=== PATIENT | female | born 1950 | race Caucasian/White ===

== ENCOUNTER 2020-07-27 11:05 | Emergency (ER) | payer MEDICARE, OTHER ==
[~2020-07-27 11:05] MED LIST: ARICEPT 5MG TABL5 MG PO; ASPIRIN CHEWABL81 MG PO; FLUTICASONE; HCTZ12.5 MG PO; HUMALOG JU100 UNIT/1 SC; HUMALOG100 UNIT/2 SC; IMDUR 30MG TABL30 MG PO; LEVEMIR VI100 UNITS/ SC; LEXAPRO 10MG TA10 MG PO; LIPITOR40 MG PO; MAG-OXIDE 400M400 MG PO; MIRALAX17 GM PO; NAPROXEN500 MG PO; NORVASC5 MG PO; OS-CAL500 MG PO; PRINIVIL20 MG PO; TRESIBA FL100 UNIT/1 SC; TRESIBA100 UNIT/1 SC; VITAMIN D-32000 UNI1 PO
[2020-07-27 11:58] LABS: BASOPHIL 1.1 % (0-2); EOSINOPHIL 0.5 % (0-7); HCT 35.2 % (37.0-47.0); HGB 10.9 g/dl (12.5-16.0); LYMPHOCYTE 13.4 % (15-48); MCH 28.8 pg (25.0-31.0); MCV 93.1 fL (78.0-100.0); MONOCYTE 6.9 % (0-12); MPV 10.1 fL (6.0-9.5); NEUTROPHIL 77.6 % (41-80); NRBC 0; PLT 188 K/uL (150-400); RBC 3.78 M/uL (4.20-5.40); RDW 14.2 % (11.5-14.0); WBC 5.5 K/uL (4.0-10.5)
[2020-07-27 12:15] LABS: ALBUMIN 3.2 g/dL (3.4-5.0); BILIRUBIN - TOTAL 0.3 mg/dL (0.2-1.0); BUN/CREAT RATIO (CALC) 26.4 RATIO; CREATININE 1.21 mg/dL (0.51-0.95); GLOBULIN (CALCULATION) 3.4 g/dL; POTASSIUM 5.5 mmol/L (3.5-5.1); TOTAL PROTEIN 6.6 g/dL (6.4-8.2)
[2020-07-27 13:01] LABS: BILIRUBIN NEGATIVE (NEGATIVE); BLOOD NEGATIVE Ery/uL (NEGATIVE); CLARITY CLEAR (CLEAR); COLOR YELLOW (YELLOW); GLUCOSE (U) 3+ mg/dL (NORMAL); LEUKOCYTES NEGATIVE Leu/uL (NEGATIVE); NITRITE NEGATIVE (NEGATIVE); PROTEIN NEGATIVE (NEGATIVE); SPECIFIC GRAVITY 1.015 (1.001-1.030); UROBILINOGEN 0.2 mg/dL (0.2-1.0); pH 6.5 (5.0-9.0)
== END 2020-07-27 15:20 | disposition home or self-care (01) ==
LOC: FER 11:05
PROVIDERS: Emergency Medicine
DX: F03.90 Unspecified dementia, unspecified severity, without behavioral disturbance, psychotic disturbance, mood disturbance, and anxiety (principal); I10 Essential (primary) hypertension; E11.9 Type 2 diabetes mellitus without complications
CPT/HCPCS: 36415; 70450; 80053; 81003; 85025; 99285

== ENCOUNTER 2020-09-23 19:24 | Day surgery (SDCO) | payer MEDICARE, OTHER ==
[~2020-09-23] VITALS: Ht 162.6 cm; Wt 74.6 kg
[2020-09-23 19:49] LABS: BASOPHIL 0.6 % (0-2); EOSINOPHIL 1.8 % (0-7); HCT 37.2 % (37.0-47.0); HGB 11.9 g/dl (12.5-16.0); LYMPHOCYTE 26.7 % (15-48); MCV 90.5 fL (78.0-100.0); MONOCYTE 9.2 % (0-12); MPV 9.9 fL (6.0-9.5); NEUTROPHIL 60.5 % (41-80); NRBC 0; PLT 264 K/uL (150-400); RBC 4.11 M/uL (4.20-5.40); RDW 13.3 % (11.5-14.0); WBC 4.9 K/uL (4.0-10.5)
[2020-09-23 20:05] LABS: BILIRUBIN NEGATIVE (NEGATIVE); BLOOD NEGATIVE Ery/uL (NEGATIVE); CLARITY CLEAR (CLEAR); COLOR YELLOW (YELLOW); GLUCOSE (U) TRACE mg/dL (NORMAL); LEUKOCYTES NEGATIVE Leu/uL (NEGATIVE); NITRITE NEGATIVE (NEGATIVE); PROTEIN NEGATIVE (NEGATIVE); UROBILINOGEN 0.2 mg/dL (0.2-1.0)
[2020-09-23 20:06] LABS: AMPHETAMINES NEGATIVE (NEGATIVE); BARBITURATES NEGATIVE (NEGATIVE); ECSTASY (MDMA) NEGATIVE (NEGATIVE); MARIJUANA (THC) NEGATIVE (NEGATIVE); METHADONE NEGATIVE (NEGATIVE); OPIATES NEGATIVE (NEGATIVE); OXYCODONE NEGATIVE (NEGATIVE)
[2020-09-23 20:26] LABS: INR 1.07 (0.9-1.2); PROTHROMBIN TIME 13.2 SECONDS (11.4-13.6); PTT 30.8 SECONDS (22.2-34.7)
[2020-09-23 20:33] LABS: ALBUMIN 3.5 g/dL (3.4-5.0); BILIRUBIN - TOTAL 0.2 mg/dL (0.2-1.0); CREATININE 1.18 mg/dL (0.51-0.95); TOTAL PROTEIN 7.5 g/dL (6.4-8.2)
[2020-09-23 20:35] LABS: POTASSIUM 6.1 mmol/L (3.5-5.1)
[2020-09-24 02:32] LABS: BUN/CREAT RATIO (CALC) 26.1 RATIO; CREATININE 1.11 mg/dL (0.51-0.95)
[2020-09-24 02:33] LABS: POTASSIUM 5.4 mmol/L (3.5-5.1)
[2020-09-24 04:49] LABS: CORONAVIRUS 2019 SARS-COV-2 NEGATIVE (NEGATIVE); INFLUENZA A NAA NEGATIVE (NEGATIVE)
[2020-09-24 08:28] LABS: BASOPHIL 0.9 % (0-2); EOSINOPHIL 1.5 % (0-7); HCT 36.4 % (37.0-47.0); HGB 11.3 g/dl (12.5-16.0); LYMPHOCYTE 21.1 % (15-48); MCH 28.7 pg (25.0-31.0); MCV 92.4 fL (78.0-100.0); MPV 9.3 fL (6.0-9.5); NEUTROPHIL 68.6 % (41-80); NRBC 0; PLT 228 K/uL (150-400); RBC 3.94 M/uL (4.20-5.40); RDW 13.3 % (11.5-14.0); WBC 4.6 K/uL (4.0-10.5)
[2020-09-24 08:52] LABS: ALBUMIN 3.2 g/dL (3.4-5.0); BILIRUBIN - TOTAL 0.2 mg/dL (0.2-1.0); BUN/CREAT RATIO (CALC) 24.5 RATIO; CREATININE 1.1 mg/dL (0.51-0.95); GLOBULIN (CALCULATION) 3.7 g/dL; TOTAL PROTEIN 6.9 g/dL (6.4-8.2)
--- NOTE | 2020-09-24 11:18 | NUR ---
PER PT. SISTER, FABIANO, PT. LIVED WITH HER SISTER FABIANO FOR THE PAST FOUR YEARS. SHE MOVED INTO THE [facility] AT [facility] IN MAY 2020. HER SISTER REPORTS THAT SHE GETS GOOD CARE. PT. DOES NOT HAVE ANY CHILDREN NOR HAS SHE BEEN . HER SISTER, FABIANO, IS THE PRIMARY FAMILY WHO CARES FOR PATIENT.
[2020-09-24] MEDS ORDERED: NORVASC5 MG PO (15:04)
[2020-09-24] MEDS ORDERED: CYMBALTA 30MG C30 MG PO (15:05)
[2020-09-24] MEDS ORDERED: FERROUS SULFAT325 M1 PO (15:09)
[2020-09-24] MEDS ORDERED: MAG-OXIDE 400M400 MG PO (15:10)
[2020-09-24] MEDS ORDERED: NAMENDA 10MG TA10 MG PO (15:10)
[2020-09-24] MEDS ORDERED: MIRALAX17 G1 PO (15:11)
[2020-09-24] MEDS ORDERED: ALDACTONE25 MG PO (15:12)
[2020-09-24] MEDS ORDERED: TRAZODONE 50MG50 MG PO (15:14)
--- NOTE | 2020-09-24 15:38 | NUR ---
09/24/20. [facility] Jimenez reports plans to accept patient back to [facility] / Memory Unit. A new COVID test will be required if patient discharges 09/27 or beyond. [facility] has in-house Therapy and nursing. Ms. Oscar was receiving therapy 3 times per week. - A report was given to Dr. Pozo. Discharge is anticipated for 09/25/20. - Report given to Zeb García,
[2020-09-24 19:32] LABS: BASOPHIL 0.6 % (0-2); EOSINOPHIL 1.2 % (0-7); HCT 36.1 % (37.0-47.0); HGB 11.3 g/dl (12.5-16.0); LYMPHOCYTE 21.9 % (15-48); MCH 28.8 pg (25.0-31.0); MCHC 31.3 g/dL (32.0-36.0); MCV 92.1 fL (78.0-100.0); MONOCYTE 8.1 % (0-12); MPV 9.1 fL (6.0-9.5); NEUTROPHIL 67.4 % (41-80); NRBC 0; PLT 215 K/uL (150-400); RBC 3.92 M/uL (4.20-5.40); RDW 13.3 % (11.5-14.0); WBC 5.1 K/uL (4.0-10.5)
[2020-09-24 19:46] LABS: BUN/CREAT RATIO (CALC) 23.7 RATIO; CREATININE 1.39 mg/dL (0.51-0.95); MAGNESIUM 2.1 mg/dL (1.8-2.4)
[2020-09-25 06:17] LABS: BASOPHIL 0.6 % (0-2); EOSINOPHIL 2.3 % (0-7); HGB 11.5 g/dl (12.5-16.0); LYMPHOCYTE 26.2 % (15-48); MCHC 31.9 g/dL (32.0-36.0); MCV 90.9 fL (78.0-100.0); MONOCYTE 9.3 % (0-12); MPV 9.5 fL (6.0-9.5); NEUTROPHIL 60.8 % (41-80); NRBC 0; PLT 225 K/uL (150-400); RBC 3.96 M/uL (4.20-5.40); RDW 13.4 % (11.5-14.0); WBC 4.9 K/uL (4.0-10.5)
[2020-09-25 06:55] LABS: ALBUMIN 3.3 g/dL (3.4-5.0); BILIRUBIN - TOTAL 0.3 mg/dL (0.2-1.0); BUN/CREAT RATIO (CALC) 26.1 RATIO; CREATININE 1.38 mg/dL (0.51-0.95); GLOBULIN (CALCULATION) 3.7 g/dL; POTASSIUM 6.5 mmol/L (3.5-5.1)
[2020-09-25 14:01] LABS: CREATININE 1.68 mg/dL (0.51-0.95); POTASSIUM 6.2 mmol/L (3.5-5.1)
--- NOTE | 2020-09-25 15:29 | NUR ---
09/25/20 Please call report to Jeffrey Frey at [phone]. Patient will require a new COVID test if discharged 09/27 or beyond.
[2020-09-26 06:00] LABS: BASOPHIL 0.8 % (0-2); EOSINOPHIL 1.2 % (0-7); HCT 32.3 % (37.0-47.0); HGB 10.2 g/dl (12.5-16.0); LYMPHOCYTE 26.8 % (15-48); MCH 29.1 pg (25.0-31.0); MCHC 31.6 g/dL (32.0-36.0); MPV 9.2 fL (6.0-9.5); NEUTROPHIL 58.6 % (41-80); NRBC 0; PLT 182 K/uL (150-400); RBC 3.51 M/uL (4.20-5.40); RDW 13.6 % (11.5-14.0); WBC 4.9 K/uL (4.0-10.5)
[2020-09-26 06:12] LABS: BUN/CREAT RATIO (CALC) 24.3 RATIO; CREATININE 1.77 mg/dL (0.51-0.95); MAGNESIUM 1.7 mg/dL (1.8-2.4)
[2020-09-26 06:19] LABS: POTASSIUM 4.5 mmol/L (3.5-5.1)
== END 2020-09-26 17:34 ==
LOC: FER 19:24 → FMS 09-24 03:36
PROVIDERS: Emergency Medicine Emergency Medical Services; Nurse Practitioner; ADMIT Internal Medicine
DX: E87.5 Hyperkalemia (principal); T50.0X5A Adverse effect of mineralocorticoids and their antagonists, initial encounter; G24.3 Spasmodic torticollis; F03.90 Unspecified dementia, unspecified severity, without behavioral disturbance, psychotic disturbance, mood disturbance, and anxiety; I12.9 Hypertensive chronic kidney disease with stage 1 through stage 4 chronic kidney disease, or unspecified chronic kidney disease; E11.22 Type 2 diabetes mellitus with diabetic chronic kidney disease; N18.9 Chronic kidney disease, unspecified; N17.9 Acute kidney failure, unspecified; K05.219 Aggressive periodontitis, localized, unspecified severity; M19.90 Unspecified osteoarthritis, unspecified site; G93.89 Other specified disorders of brain; I08.1 Rheumatic disorders of both mitral and tricuspid valves; I27.20 Pulmonary hypertension, unspecified; E78.5 Hyperlipidemia, unspecified; R41.0 Disorientation, unspecified; Z86.73 Personal history of transient ischemic attack (TIA), and cerebral infarction without residual deficits; Z79.4 Long term (current) use of insulin; Z79.82 Long term (current) use of aspirin; Z79.899 Other long term (current) drug therapy; Z20.822 Contact with and (suspected) exposure to COVID-19
CPT/HCPCS: 36415; 36600; 70450; 70551; 71045; 80048; 80053; 80305; 81003; 82550; 82803; 83605; 83735; 83880; 84132; 84484; 85025; 85610; 85730; 87040; 93005; 94640; 97162; 97165; 97530-GP; 97535; G0378; J0456; J0610; J0696; J3475; J7030; J7050; U0002